=== PATIENT | male | born 1960 | race Caucasian/White ===

== ENCOUNTER 2018-09-08 17:16 | Emergency (ER) | payer OTHER ==
[~2018-09-08] VITALS: Ht 172.7 cm; Wt 70.3 kg
[~2018-09-08 17:16] MED LIST: ACETAMINOPHEN500 M1 PO; AMLODIPINE BESYL5 MG PO; CLINDAMYCIN HC300 MG PO; FLUCONAZOLE150 MG PO; FOLIC ACID1 MG PO; LISINOPRIL-HCT1 EAC2 PO; LISINOPRIL10 MG PO; MELOXICAM15 MG PO; METHYLPREDNISOLO4 M1 PO; NORCO 5-325 TA1 EACH PO; OXYCODON-ACETA1 EAC2 PO; TRAZODONE HCL150 MG PO; TREXALL15 MG PO; VISTARIL25 MG PO; ZOFRAN ODT4 MG PO
[2018-09-08] MEDS ORDERED: PROZAC20 MG PO (17:35)
[2018-09-08] MEDS ORDERED: CYCLOBENZAPRINE10 MG PO (17:36)
[2018-09-08] MEDS ORDERED: CYCLOBENZAPRINE5 MG PO (18:51)
[2018-09-08] MEDS ORDERED: NEURONTIN400 MG PO (18:51)
[2018-09-08] MEDS ORDERED: MELOXICAM7.5 MG PO (18:51)
== END 2018-09-08 19:01 | disposition home or self-care (01) ==
LOC: ED 17:16
DX: M48.56XA Collapsed vertebra, not elsewhere classified, lumbar region, initial encounter for fracture (principal); M47.816 Spondylosis without myelopathy or radiculopathy, lumbar region; I10 Essential (primary) hypertension; F32.9 Major depressive disorder, single episode, unspecified; F17.200 Nicotine dependence, unspecified, uncomplicated; Z90.49 Acquired absence of other specified parts of digestive tract; Z88.0 Allergy status to penicillin; Z88.8 Allergy status to other drugs, medicaments and biological substances; Z91.09 Other allergy status, other than to drugs and biological substances; Z91.011 Allergy to milk products; Z79.899 Other long term (current) drug therapy
CPT/HCPCS: 72131; 96372; 99283-25; J1885

== ENCOUNTER 2021-01-17 10:18 | Emergency (ER) | payer MEDICARE, MEDICAID ==
[~2021-01-17] VITALS: Ht 170.2 cm; Wt 81.7 kg
[~2021-01-17 10:18] MED LIST changes: +CYCLOBENZAPRINE10 MG PO; +CYCLOBENZAPRINE5 MG PO; +MELOXICAM7.5 MG PO; +NEURONTIN400 MG PO; +PROZAC20 MG PO
--- OUTSIDE RECORDS SUMMARY | 2021-01-17 10:55 | XMS ---
PreManage Notification: KRISTIN BAIRES [employer] Events No recent Security Events currently on file CRITERIA MET - PDMP CARE PROVIDERS NASRIN VALENTINE Physician Licensed Physical Therapy Assistant 04/17/2016-Current PHONE: [phone] Zoila has no Care Guidelines for this patient. Gena VISIT COUNT (12 MO.) 1 PAL Jimenez TOTAL 1 NOTE: Visits indicate total known visits. ED/UCC VISIT TRACKING (12 MO.) 01/17/2021 10:19 [facility] TYPE: Emergency COMPLAINT: - LOWER BACK/HIPS PAIN INPATIENT VISIT TRACKING (12 MO.) No inpatient visits to display in this time frame [email or web address]
[2021-01-17] MEDS ORDERED: ATORVASTATIN CA80 MG PO (11:53)
[2021-01-17] MEDS ORDERED: GABAPENTIN300 MG PO (11:54)
[2021-01-17] MEDS ORDERED: DOXAZOSIN MESYLA2 MG PO (11:55)
[2021-01-17] MEDS ORDERED: METOPROLOL SUC100 MG PO (11:55)
[2021-01-17] MEDS ORDERED: PRAMIPEXOLE DI0.5 MG PO (11:55)
[2021-01-17] MEDS ORDERED: VITAMIN D21250 MCG PO (11:56)
[2021-01-17] MEDS ORDERED: PREDNISONE20 MG PO (14:59)
[2021-01-17] MEDS ORDERED: OXYCODONE HCL5 MG PO (15:00)
== END 2021-01-17 15:15 | disposition home or self-care (01) ==
LOC: ED 10:18
DX: M54.42 Lumbago with sciatica, left side (principal); I10 Essential (primary) hypertension; Z87.891 Personal history of nicotine dependence; Z88.0 Allergy status to penicillin; Z88.8 Allergy status to other drugs, medicaments and biological substances; Z79.899 Other long term (current) drug therapy
CPT/HCPCS: 96374; 96375; 99283-25; J1100; J1885

== ENCOUNTER 2024-05-07 10:44 | Emergency (ER) | payer MEDICARE, OTHER ==
[~2024-05-07] VITALS: Ht 170.2 cm; Wt 93.0 kg
[~2024-05-07 10:44] MED LIST changes: +ATORVASTATIN CA80 MG PO; +DOXAZOSIN MESYLA2 MG PO; +GABAPENTIN300 MG PO; +METOPROLOL SUC100 MG PO; +OXYCODONE HCL5 MG PO; +PRAMIPEXOLE DI0.5 MG PO; +PREDNISONE20 MG PO; +VITAMIN D21250 MCG PO
[2024-05-07] MEDS ORDERED: MORPHINE SULFATE 4 MG/ML VIAL IV ONE (11:00)
[2024-05-07] MEDS ORDERED: ondansetron HCL 4 MG/2 ML VIAL IV ONE ×2 (11:00→12:00)
[2024-05-07] MEDS ORDERED: NITROGLYCERIN 0.4 MG SUBL SL PRN (11:00)
[2024-05-07] MEDS ORDERED: ASPIRIN 81 MG CHEW PO ONE (11:00)
[2024-05-07] MEDS ORDERED: VENTOLIN HFA18 GM INH (11:09)
[2024-05-07] MEDS ORDERED: GABAPENTIN400 MG PO (11:13)
[2024-05-07] MEDS ORDERED: METOPROLOL TART50 MG PO (11:13)
[2024-05-07] MEDS ORDERED: FLUOXETINE HCL40 MG PO (11:13)
[2024-05-07] MEDS ORDERED: ANORO ELLIPTA1 EACH INH (11:21)
[2024-05-07] MEDS ORDERED: ROSUVASTATIN CA40 MG PO (11:21)
[2024-05-07] MEDS ORDERED: SODIUM CHLORIDE 0.9% 500 ML IV PRN (11:30)
[2024-05-07 11:31] LABS: BASOPHILS 0.6 % (0-2); EOSINOPHILS 3.2 % (0-6); HEMOGLOBIN 14.8 g/dL (12.0-18.0); LYMPHOCYTES 28.3 % (24-44); MCH 29.4 (27-36); MCHC 34.5 g/dl (30-36); MCV 85.2 fl (81-99); MONOCYTES 9.8 % (0-12); NEUTROPHILS 58.1 % (39-80); PLATELET COUNT 273 K/uL (140-440); RBC 5.04 M/ul (4.3-5.7); RDW 13.4 (10.5-15.0)
[2024-05-07 11:53] LABS: ALBUMIN 4.4 g/dL (3.4-5.0); ALBUMIN/GLOBULIN RATIO 1.29 (1.1-2.4); ALKALINE PHOSPHATASE 97 U/L (46-116); ALT (SGPT) 37 U/L (14-59); ANION GAP 12.3 (7-21); AST (SGOT) 11 U/L (15-37); BILIRUBIN, TOTAL 0.5 ng/dL (0.2-1.0); BUN/CREATININE RATIO 14.54 (6.0-28.6); CALCIUM 9.4 mg/dL (8.5-10.1); CARBON DIOXIDE 30 mmol/L (21-32); CHLORIDE 101 mmol/L (98-107); GLOMERULAR FILTRATION RATE,EST 75 mL/min (>60); POTASSIUM 4.3 mmol/L (3.5-5.1); PROTEIN, TOTAL 7.8 g/dL (6.4-8.2); UREA NITROGEN 16 mg/dL (7-18)
[2024-05-07] MEDS ORDERED: METOCLOPRAMIDE HCL 10 MG/2 ML SDV IV ONE (13:30)
[2024-05-07] MEDS ORDERED: ONDANSETRON ODT8 MG PO (14:57)
[2024-05-07] MEDS ORDERED: REGLAN10 MG PO (14:57)
[2024-05-07] MEDS ORDERED: HYDROCODON-ACE1 EA11 PO (14:57)
[2024-05-07] MEDS ORDERED: HYDROCODONE/ACETA 7.5/325 TAB PO ONE (15:00)
[2024-05-07 15:10] VITALS: BP 107/78
--- NOTE | 2024-05-07 23:14 | EKG ---
[facility] [address] [place] [address] Signed Normal sinus rhythm Low voltage QRS ST \T\ T wave abnormality, consider anterior ischemia Abnormal ECG When compared with ECG of 01-MAY-2016 15:00, ST now depressed in Anterior leads T wave inversion now evident in Anterior leads Confirmed by Kris Ashraf MD () on 05/07/2024 11:14:28 PM Electronically Signed By: KRIS ASHRAF MD 05/07/24 2314 PATIENT NAME: KRISTIN BAIRES Electrocardiogram DATE OF : 60 PHYSICIAN: KRIS ASHARF MD REPORT #: [id number] REPORT IS CONFIDENTIAL AND NOT TO BE RELEASED WITHOUT AUTHORIZATION
--- NOTE | 2024-05-07 23:15 | EKG ---
[facility] [address] [facility] [place] [address] Signed Normal sinus rhythm ST \T\ T wave abnormality, consider anterior ischemia Abnormal ECG When compared with ECG of 07-MAY-2024 10:47, No significant change was found Confirmed by Kris Ashraf MD () on 05/07/2024 11:14:56 PM Electronically Signed By: KRIS ASHRAF MD 05/07/24 2315 PATIENT NAME: KRISTIN BAIRES BERNARDA Electrocardiogram DATE OF : 60 PHYSICIAN: KRIS ASHRAF MD REPORT #: [id number] REPORT IS CONFIDENTIAL AND NOT TO BE RELEASED WITHOUT AUTHORIZATION
== END 2024-05-07 15:12 | disposition home or self-care (01) ==
LOC: ED 10:44
PROVIDERS: Emergency Medicine
DX: R07.9 Chest pain, unspecified (principal); I25.10 Atherosclerotic heart disease of native coronary artery without angina pectoris; I10 Essential (primary) hypertension; Z95.1 Presence of aortocoronary bypass graft; Z87.891 Personal history of nicotine dependence; Z88.0 Allergy status to penicillin; Z91.09 Other allergy status, other than to drugs and biological substances; Z88.8 Allergy status to other drugs, medicaments and biological substances; Z79.899 Other long term (current) drug therapy
CPT/HCPCS: 36415; 71045; 71275; 74174; 80053; 83690; 84484; 85025; 85379; 93005; 93010; 99285-25; A9270; J2270; J2405; J2765; J7040; Q9967